=== PATIENT | female | born 1990 | race Caucasian/White ===

== ENCOUNTER 2020-03-28 15:16 | Emergency (ER) | payer BC, OTHER ==
[2020-03-30 12:44] LABS: SARS-CoV-2 MS2 Positive; SARS-CoV-2 N Gene Positive; SARS-CoV-2 S Gene Positive; SARS-CoV-2 orf1ab Positive
== END 2020-03-28 16:21 | disposition home or self-care (01) ==
LOC: NAV ERS 15:16
DX: U07.1 COVID-19 (principal)
CPT/HCPCS: 87635; 99283; U0003